=== PATIENT | female | born 1995 | race Caucasian/White ===

== ENCOUNTER 2018-11-04 19:38 | Emergency (ER) | payer SELFPAY ==
[2018-11-04 23:40] VITALS: BP 116/70
== END 2018-11-04 23:40 | disposition home or self-care (01) ==
LOC: ED 19:38
DX: S92.401A Displaced unspecified fracture of right great toe, initial encounter for closed fracture (principal); S20.212A Contusion of left front wall of thorax, initial encounter; S09.93XA Unspecified injury of face, initial encounter; Z98.890 Other specified postprocedural states; Y04.8XXA Assault by other bodily force, initial encounter; Y93.89 Activity, other specified; Y92.89 Other specified places as the place of occurrence of the external cause; Y99.8 Other external cause status
CPT/HCPCS: 90715